=== PATIENT | male | born 2000 | race Caucasian/White ===

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

== ENCOUNTER 2022-03-24 01:41 | Emergency (ER) | payer MEDICAID, OTHER ==
[~2022-03-24] VITALS: Ht 188 cm; Wt 56.0 kg
[2022-03-24] MEDS ORDERED: IBUPROFEN 600MG TABLET PO ONE (08:00)
[2022-03-24] MEDS ORDERED: OXYM30SP26 BOTHNSTRLS (08:45)
[2022-03-24] MEDS ORDERED: IBUP-2029 MT (08:45)
[2022-03-24] MEDS ORDERED: AMOX1TAB16 MT (08:45)
[2022-03-24 09:03] VITALS: BP 125/64
== END 2022-03-24 09:05 | disposition home or self-care (01) ==
LOC: ER 01:53
DX: S02.2XXA Fracture of nasal bones, initial encounter for closed fracture (principal); S02.40CA Maxillary fracture, right side, initial encounter for closed fracture; Y08.89XA Assault by other specified means, initial encounter; Y93.89 Activity, other specified; Y92.89 Other specified places as the place of occurrence of the external cause
CPT/HCPCS: 70486; 99284